=== PATIENT | male | born 1995 | race Caucasian/White ===

== ENCOUNTER 2020-03-15 12:31 | Emergency (ER) | payer OTHER ==
[2020-03-15 13:04] VITALS: BP 112/53
--- NOTE | 2020-03-15 13:05 | UC ---
Skin Complaint HPI - HPI Summary HPI Summary: Patient is a 25yo male presenting with "painful lump" in the right axilla x3 days. States "it's actually getting better." States only painful when lifting the right arm. Denies rash and erythema. Denies draining and bleeding. Denies recent illness. Denies fever and chills. States he is concerned it may be a boil but has never had anything like this in the past. - History of Current Complaint Time Seen by Provider: 03/15/20 12:56 Stated Complaint: RT ARM SKIN COMPLAINT Hx Obtained From: Patient Pain Intensity: 0 - Allergy/Home Medications Allergies/Adverse Reactions: Allergies Allergy/AdvReac Type Severity Reaction Status Date / Time No Known Allergies Allergy Verified 03/15/20 12:58 Home Medications: Home Medications NK [No Home Medications Reported] 03/15/20 [History Confirmed 03/15/20] PMH/Surg Hx/FS Hx/Imm Hx Previously Healthy: Yes - Surgical History Surgical History: Yes Surgery Procedure, Year, and Place: tear duct reconstruction. tendon reconstruction in R hand - Family History Known Family History: Positive: Non-Contributory - Social History Alcohol Use: Daily Alcohol Amount: wine Substance Use Type: Marijuana Substance Use Comment - Amount & Last Used: daily Smoking Status (MU): Heavy Every Day Tobacco Smoker Type: Cigarettes Amount Used/How Often: 1 PPD Review of Systems All Other Systems Reviewed And Are Negative: Yes Constitutional: Positive: Negative Skin: Positive: Other - "painful lump" in R axilla Respiratory: Positive: Negative Cardiovascular: Positive: Negative Gastrointestinal: Positive: Negative Musculoskeletal: Positive: Negative Neurological/Mental Status: Positive: Negative Physical Exam - Summary Physical Exam Summary: Vital Signs Reviewed: Yes A+Ox3, no distress Eyes: Conjunctiva Clear ENT: Hearing grossly normal neck: supple Respiratory: Positive: No respiratory distress, No accessory muscle use Cardiovascular: skin color reflect adequate perfusion Musculoskeletal Exam: MARROQUIN x 4 without difficulty Neurological: Positive: Alert, ambulatory without difficulty Psychological: Positive: age appropriate behavior Skin: Positive: minimally tender round, mobile node >1cm noted in R axilla, no overlying erythema or warmth, no fluctuance, no rash, no ecchymosis Vital Signs: Initial Vital Signs Temp 97.6 F 03/15/20 12:58 Pulse 78 03/15/20 12:58 Resp 16 03/15/20 12:58 BP 112/53 03/15/20 12:58 Pulse Ox 99 03/15/20 12:58 Course/Dx - Course Course Of Treatment: No s/s of infection. Discussed axillary lymphadenopathy with patient and instructed to apply warm compresses and take NSAIDs to help alleviate symptoms. Edcucated on s/s of skin infection and instructed to return or go to ED if any red flags occur. Patient voiced understanding and agreed with treatment plan. - Diagnoses Provider Diagnosis: Axillary lymphadenopathy Discharge ED - Sign-Out/Discharge Documenting (check all that apply): Patient Departure All imaging exams completed and their final reports reviewed: No Studies - Discharge Plan Condition: Stable Disposition: HOME Patient Education Materials: Lymphadenopathy (ED) Additional Instructions: Apply warm compresses to the area 2-3 times daily for 15-20 minutes. You may also take ibuprofen as directed for pain relief. Return or go to the emergency room if you experience any new or worsening symptoms. - Billing Disposition and Condition Condition: STABLE Disposition: Home
== END 2020-03-15 13:16 | disposition home or self-care (01) ==
LOC: UCCORT 12:31
DX: R59.0 Localized enlarged lymph nodes (principal); F17.210 Nicotine dependence, cigarettes, uncomplicated
CPT/HCPCS: 99201; G0463